=== PATIENT | female | born 1945 | race Caucasian/White ===

== ENCOUNTER 2023-10-07 14:02 | Outpatient (CLI) | payer BC, MEDICARE, OTHER | END 2023-10-07 14:03 | disposition home or self-care (01) | LOC: DTY/OP 14:02 | PROVIDERS: ATTEND Specialist | DX: K43.9 Ventral hernia without obstruction or gangrene (principal) | CPT/HCPCS: 97802 ==

== ENCOUNTER 2024-02-11 13:24 | Outpatient (CLI) | payer MEDICARE, BC ==
[2024-02-11 15:25] LABS: #Basophils 0.1 10x3/uL (0.0-0.2); #Eosinphils 0.1 10x3/uL (0.0-0.5); #Monocytes 0.7 10x3/uL (0.0-1.1); #Neutrophils 5.6 10x3/uL (1.5-8.4); %Basophils 0.5 % (0.0-2.0); %Lymphocytes 31.6 % (18.0-47.0); %Monocytes 7.7 % (0.0-10.0); %Neutrophils 58.5 % (40.0-75.0); Hematocrit 41.6 % (34.9-44.5); Hemoglobin 13.9 g/dL (12.0-15.5); Mean Corpuscular HGB CONC 33.4 g/dL (32.0-36.0); Mean Corpuscular Volume 113.7 fl (81.6-98.3); Mean Platelet Volume 11.2 fl (7.4-10.4); Platelet Count 346 10x3/uL (150-450); RBC Distribution Width 13.8 % (11.5-14.5); Red Blood Cell (RBC) Count 3.66 10x6/uL (3.90-5.03); White Blood Cell (WBC) Count 9.6 10x3/uL (3.5-10.5)
[2024-02-11 15:56] LABS: Anion Gap 15 mmol/L (10-20); BUN (Urea Nitrogen) 28 mg/dL (9.8-20.1); Calc. Creatinine Clearance 0 mL/min (70-130); Calcium 9.6 mg/dL (7.8-10.44); Carbon Dioxide 24 mmol/L (23-31); Chloride 105 mmol/L (98-107); Estimated GFR 54; Glucose 94 mg/dL (83-110); Potassium 4.3 mmol/L (3.5-5.1); Sodium 140 mmol/L (136-145)
== END 2024-02-11 13:25 | disposition home or self-care (01) ==
LOC: LABBT 13:24
PROVIDERS: ATTEND Specialist
DX: Z01.818 Encounter for other preprocedural examination (principal); K43.9 Ventral hernia without obstruction or gangrene
CPT/HCPCS: 71046; 80048; 85025; 93005; 93010

== ENCOUNTER 2025-07-19 13:45 | Outpatient (CLI) | payer MEDICARE, BC | END 2025-07-19 13:46 | disposition home or self-care (01) | LOC: MRI 13:45 | PROVIDERS: ATTEND Orthopaedic Surgery | DX: M51.372 Other intervertebral disc degeneration, lumbosacral region with discogenic back pain and lower extremity pain (principal); M47.816 Spondylosis without myelopathy or radiculopathy, lumbar region; M43.16 Spondylolisthesis, lumbar region | CPT/HCPCS: 72148 ==

== ENCOUNTER 2025-10-08 14:17 | Outpatient (CLI) | payer MEDICARE, BC | END 2025-10-08 14:18 | disposition home or self-care (01) | LOC: BICMAMMO 14:17 | PROVIDERS: ATTEND Family Medicine | DX: Z78.0 Asymptomatic menopausal state (principal); M81.0 Age-related osteoporosis without current pathological fracture; M85.852 Other specified disorders of bone density and structure, left thigh | CPT/HCPCS: 77080 ==